=== PATIENT | female | born 2000 | race Two or more races ===

== ENCOUNTER 2021-05-26 16:09 | Emergency (ER) | payer MEDICAID ==
[~2021-05-26] VITALS: Ht 160 cm; Wt 63.0 kg
[2021-05-26 16:10] VITALS: BP 140/70
[2021-05-26] MEDS ORDERED: ACETAMINOPHEN 325MG TABLET PO ONE (18:45)
== END 2021-05-26 19:13 | disposition home or self-care (01) ==
LOC: ER 18:58
DX: M54.5 Low back pain (principal)
CPT/HCPCS: 99283

== ENCOUNTER 2021-06-30 04:51 | Emergency (ER) | payer MEDICAID ==
[~2021-06-30] VITALS: Ht 160 cm; Wt 64.0 kg
[2021-06-30] MEDS ORDERED: KETOROLAC 30MG/ML VIAL IM ONE (05:30)
[2021-06-30] MEDS ORDERED: BACITRACIN ZINC OINT UDPKT TOP ONE (05:45)
[2021-06-30 05:46] VITALS: BP 110/79
[2021-06-30] MEDS ORDERED: NAPR-679 MT (06:27)
== END 2021-06-30 07:00 | disposition home or self-care (01) ==
LOC: ER 04:51
DX: M79.645 Pain in left finger(s) (principal); M79.644 Pain in right finger(s); S80.212A Abrasion, left knee, initial encounter; S80.211A Abrasion, right knee, initial encounter; X58.XXXA Exposure to other specified factors, initial encounter; Y04.0XXA Assault by unarmed brawl or fight, initial encounter; Y93.89 Activity, other specified; Y92.89 Other specified places as the place of occurrence of the external cause; Y99.8 Other external cause status
CPT/HCPCS: 29130; 73130; 81025; 96372; 99283; J1885